=== PATIENT | female | born 1930 | race Caucasian/White ===

== ENCOUNTER → 2017-04-15 | Outpatient (CLI) | payer OTHER ==
[~2017-04-15] MED LIST: BCTROWC EXT; CHOL100027 PO; LEVO125T72 PO; MULT-190 PO
[2017-04-15 13:40] LABS: COMPLETE YES; HEMATOCRIT 40.3 % (37-47); LYMPH % 29.7 %; LYMPH ABS # 1.29 K/uL (1.2-3.4); MEAN CELL VOLUME 91.8 fL (80-100); MEAN CORPUSCULAR HGB CONC 33.7 g/dl (32-36); MEAN PLATELET VOLUME 9.6 fL (7.4-10.4); MONO % 5.1 %; NEUT % 65.2 %; PLATELET COUNT 160 K/uL (130-400); RED BLOOD COUNT 4.39 M/uL (4.2-5.4); WHITE BLOOD COUNT 4.35 K/uL (4.8-10.8)
[2017-04-15 14:30] LABS: BLOOD UREA NITROGEN 12 mg/dl (7-18); CREATININE 0.71 mg/dl (0.60-1.20); GLUCOSE 99 mg/dl (70-99)
[2017-04-15 14:31] LABS: BUN/CREATININE RATIO 17.5 (10-20); CARBON DIOXIDE 29 mmol/L (21-32); CHLORIDE 105 mmol/L (98-107); CHOLESTEROL 198 mg/dl (0-200); POTASSIUM 3.8 mmol/L (3.5-5.1); SODIUM 141 mmol/L (136-145); TRIGLYCERIDES 45 mg/dl (0-150); VERY LOW DENSITY LIPOPROT CALC 9 mg/dl
[2017-04-15 14:41] LABS: CHOLESTEROL/HDL RATIO 2.1; HDL CHOLESTEROL 93 mg/dl; LDL CHOLESTEROL CALCULATED 96 mg/dl; PHOSPHORUS 2.8 mg/dl (2.5-4.9)
[2017-04-15 14:42] LABS: CALCIUM 9.3 mg/dl (8.5-10.1)
== END | disposition home or self-care (01) ==
LOC: C.LABMFLN 10:22
PROVIDERS: ATTEND Family Medicine
DX: E03.9 Hypothyroidism, unspecified (principal); E78.5 Hyperlipidemia, unspecified; M11.80 Other specified crystal arthropathies, unspecified site

== ENCOUNTER → 2017-09-22 | Outpatient (CLI) | payer OTHER ==
--- NOTE | 2017-09-22 15:11 | MAMMOGRAPHY REPORT ---
BILATERAL DIGITAL SCREENING MAMMOGRAM WITH CAD: 09/22/2017 CLINICAL HISTORY: Routine screening. Patient has no complaints. TECHNIQUE: Bilateral CC and MLO views were obtained. Current study was also evaluated with a Compute r Aided Detection (CAD) system. COMPARISON: 09/22/2012, 10/12/2013, 02/20/2015, 03/18/2016 mammograms from [facility]. BREAST COMPOSITION: The tissue of both breasts is heterogeneously dense, which may obscure small mas ses. FINDINGS: There are mild vascular calcifications in the breasts. No suspicious mass, architectural d istortion or cluster of microcalcifications is seen. There has been no significant interval change c omparing to the prior outside mammograms. IMPRESSION: ACR BI-RADS CATEGORY 1: NEGATIVE There is no mammographic evidence of malignancy. A 1 year screening mammogram is recommended. The pa tient will receive written notification of the results. Approximately 10% of breast cancers are not detected with mammography. A negative mammographic report should not delay biopsy if a clinically suggestive mass is present. Karla Skaggs M.D. ay/:09/22/2017 15:01:44 Electron Beam Welding Machine Operator: Chandrika GASTELUM(R)(M)(BD), [facility] letter sent: Normal 1/2 BI-RADS Code: ACR BI-RADS Category 1: Negative
== END | disposition home or self-care (01) ==
LOC: C.MAMM 11:19
PROVIDERS: ATTEND Family Medicine
DX: Z12.31 Encounter for screening mammogram for malignant neoplasm of breast (principal)

== ENCOUNTER 2017-11-13 08:58 | Emergency (ER) | payer OTHER ==
[2017-11-13 09:11] VITALS: TEMP 36.7
[2017-11-13] MEDS ORDERED: PRMVC PV (09:45)
[2017-11-13] MEDS ORDERED: LEVO112T2 PO (09:45)
--- NOTE | 2017-11-13 10:15 | EMERGENCY ROOM VISIT NOTE ---
ED Visit Note First contact with patient: 09:15 Staff note: I have reviewed the Patients chart and have discussed this case with my PA. I generally agree with the ED note and findings.
--- NOTE | 2017-11-13 10:15 | EMERGENCY ROOM VISIT NOTE ---
ED Visit Note First contact with patient: 09:15 CHIEF COMPLAINT: Left knee pain 2 days HISTORY OF PRESENT ILLNESS: Patient is a relatively healthy 87-year-old white female, past medical history includes hypothyroidism and macular degeneration who presents to the emergency department accompanied by her son for evaluation of left knee pain 2 days. She has a remote history of bilateral knee arthroscopies, and has arthritis in the left knee. She occasionally gets flares where the knee becomes painful and swollen. Patient was fine until Thursday evening, when the knee became progressively more painful and swollen. She presently rates her pain an 8/10. She has needed to use a walker for ambulation secondary to her pain. She previously had been seen by orthopedics, and subsequently rheumatology and has had cortisone injections in the knee in the past, she cannot relate when her last injection was. She denies any new injury, falls or direct trauma to the knee, nor any increased activity which could have precipitated her pain. She denies any numbness, tingling or weakness in the lower leg. She denies any calf or leg pain or swelling. She denies any symptoms in the right knee. She has not tried taking any medications , nor performing any interventions for her symptoms. REVIEW OF SYSTEMS: Review of systems as per HPI. All other systems reviewed were negative. At least 6 systems reviewed. PMH: Electronic medical records are reviewed and summarized as above/below. See Problem List. SOCIAL HISTORY: Patient lives alone. Nonsmoker. PHYSICAL EXAM: Vital Signs: Reviewed Nurse's notes. MENTAL STATUS: Patient is a pleasant, well-appearing 87-year-old white female who is awake and alert and in no acute distress. She is able to transfer from the wheelchair to the bed, ambulating with an antalgic gait. She ambulates to the bathroom using a walker without difficulty. MUSCULOSKELETAL: Examination of the left knee notes a moderate palpable knee effusion. There is no significant extra-articular soft tissue swelling. There is no erythema, increased warmth or induration. The knee is globally tender to palpation. There is no popliteal tenderness. She can extend fully, only flex his roughly 10 limited secondary to pain. There is no gross the calf is soft and nontender. The left lower extremity is neurovascularly intact. EMERGENCY DEPARTMENT COURSE: The patient was seen and evaluated as above. Old records are reviewed. She has a long-standing history of left knee pain/ arthritis, and upon further questioning, it actually sounds like she has a history of pseudogout. She reports that she had analysis of her fluid by the palliative medicine physician and she had "crystals, but not gout." She admits that she was hoping to receive a cortisone injection here in the emergency department, as she states that she could not get in with orthopedics for over 2 weeks and she cannot function like this at home until then. I discussed with her that we are unable to perform that type of procedure here in the emergency department. She has had x-rays in the past, and has no new trauma to indicate radiographs at this time. I was able to secure her and appointment with orthopedics for November 17. She declines new radiographs here, which is reasonable as they will likely be repeated at orthopedics when she goes for her appointment. She was agreeable to trial of OTC Tylenol or Aleve. I was reluctant to use narcotics in her given her advanced age and comorbidities. She has a walker. She can ice the knee for pain. I do not suspect septic joint or trauma. The patient was discharged home with her son in good condition. Medication reconciliation: I attest that I have personally reviewed the patient' s current medication list. Blood pressure screening : Patient was found to have normal blood pressure on screening and does not require follow-up. Problem List Medical Problems: (1) Hypothyroidism, Unspecified Status: Chronic (2) Macular Degeneration Nos Status: Chronic Current/Historical Medications Scheduled Estrogens, Conjugated (Premarin), 1 APPLN PV DIRECTED Levothyroxine Sodium (Synthroid), 112 MCG PO DAILY Ocuvite Preservision (Ocuvite Preservision), 2 TAB PO DAILY Allergies Coded Allergies: Penicillins (Verified Allergy, Unknown, unknown, 08/02/15) pt Vital Signs Date Time Temp Pulse Resp B/P (MAP) Pulse Ox O2 Delivery O2 Flow Rate FiO2 11/13/17 10:25 80 18 139/77 98 11/13/17 09:11 36.7 88 20 143/82 96 Room Air Departure Information Impression Primary Impression: Left knee pain Additional Impression: Effusion, left knee Referrals Sherri Babcock M.D. (PCP) Patient Instructions My [facility] Additional Instructions Ibuprofen(Motrin, Advil): may be used for fever or pain. Use 600mg every six hours as needed. Take with food. Avoid using more than 2400mg in a 24 hour period. Do not use 2400mg per day for more than three consecutive days without physician direction. Prolonged inappropriate use can lead to stomach upset or ulcers. This is available over the counter and typically comes in 200mg tablets. (AND/OR) Acetaminophen(Tylenol): may be used for fever or pain. Use 1000mg every eight hours as needed. Avoid using more than 3000mg in a 24 hour period. This is available over the counter. Ice compresses for 20 minutes at a time four times daily for 2-3 days. Continue your walker as needed. Rest and elevate your injury as discussed. Continue current medications. Return to the ER immediately for any numbness, tingling, severe pain, extreme swelling in the extremity or as needed. Follow up with [facility] on 11/17/2017 at 10:45 as scheduled. Problem Qualifiers
[2017-11-13 10:25] VITALS: BP 139/77; PULSE 80; O2SAT 98
== END 2017-11-13 10:26 | disposition home or self-care (01) ==
LOC: C.EDB 09:01 → C.EDA 10:26
DX: M25.562 Pain in left knee (principal); M25.462 Effusion, left knee; E03.9 Hypothyroidism, unspecified; H35.30 Unspecified macular degeneration; M17.12 Unilateral primary osteoarthritis, left knee

== ENCOUNTER → 2017-12-21 | Outpatient (CLI) | payer OTHER ==
[~2017-12-21] MED LIST changes: -BCTROWC EXT; -CHOL100027 PO; +LEVO112T2 PO; -LEVO125T72 PO; +PRMVC PV
== END | disposition home or self-care (01) ==
LOC: C.LABMFLN 08:47
PROVIDERS: ATTEND Family Medicine
DX: R19.7 Diarrhea, unspecified (principal); K64.4 Residual hemorrhoidal skin tags

== ENCOUNTER → 2018-05-26 | Outpatient (CLI) | payer OTHER ==
--- NOTE | 2018-05-26 09:54 | DIAGNOSTIC IMAGING REPORT ---
THORACIC SPINE 3 VIEWS ROUTINE CLINICAL HISTORY: 87 years-old Female presenting with BACK PAIN. TECHNIQUE: 3 views of the thoracic spine were obtained. COMPARISON: None. FINDINGS: Slightly exaggerated thoracic kyphosis. Vertebral bodies maintain normal height and alignment. Intervertebral disc heights preserved. Multilevel degenerative changes with disc osteophyte complexes noted to varying degrees at nearly every level. Limited visualization of the upper thoracic spine due to overlapping osseous structures. Allowing for this, no compression deformity or subluxation. No gross evidence of osseous neural foraminal narrowing. Osteopenia may be present. Atherosclerosis of aortic arch. Visualized portion of the lungs and pleural spaces clear. IMPRESSION: 1. No radiographic evidence of acute osseous injury. 2. Multilevel degenerative changes. Electronically signed by: Ventura Nguyen M.D. 05/26/2018 9:53 AM Dictated Date/Time: 05/26/2018 9:52 AM
== END | disposition home or self-care (01) ==
LOC: C.RAD 09:17
PROVIDERS: ATTEND Physician Assistant
DX: M47.9 Spondylosis, unspecified (principal)

== ENCOUNTER 2019-04-09 18:11 | Inpatient (IN) ==
[2019-04-09 18:54] LABS: Hematocrit (blood only) 36.2 % (37-47); Hemoglobin 12.8 g/dL (12.0-16.0); Immature Granulocytes # (auto) 0.02 K/uL (0.00-0.02); Immature Granulocytes % (auto) 0.2 %; Lymphocytes % (auto) 20.2 %; Mean Corpuscular Hgb Conc 35.4 g/dL (32-36); Mean Corpuscular Volume 90.5 fL (80-100); Mean Platelet Volume 8.7 fL (7.4-10.4); Monocytes # (auto) 0.77 K/uL (0.11-0.59); Monocytes % (auto) 8.6 %; Neutrophils # (auto) 6.33 K/uL (1.4-6.5); Platelet Count 181 K/uL (130-400); RDW Coefficient of Variation 12.8 % (11.5-14.5); RDW Standard Deviation 42.3 fL (36.4-46.3); White Blood Count 8.92 K/uL (4.8-10.8)
[2019-04-09 19:08] LABS: BUN Creatinine Ratio 18.2 (10-20); Blood Urea Nitrogen 13 mg/dl (7-18); Calcium 8.2 mg/dl (8.5-10.1); Carbon Dioxide 25 mmol/L (21-32); Chloride 104 mmol/L (98-107); Est GFR (African American) 86.1; Est GFR (Non-African American) 74.3; Glucose 108 mg/dl (70-99); Potassium 4.4 mmol/L (3.5-5.1); Sodium 133 mmol/L (136-145)
[2019-04-09] MEDS ORDERED: VANCOMYCIN HCL 1,000 MG in SODIUM CHLORIDE 0.9% 500 ML IV ONE (20:33)
[2019-04-09] MEDS ORDERED: VANCOMYCIN CONSULT ACTIVE PRN (20:33)
--- NOTE | 2019-04-09 20:33 | Emergency Department Note ---
Entered by Taylor Meredith acting as a scribe for Khris Jacobs ED Visit Note The patient was seen and examined by myself in conjunction with the advanced care provider, Odalis Becerra PA-C. I agree with the history, physical and findings as documented. Please see the note for disposition and details. . The scribe's documentation has been prepared under my direction and personally reviewed by me in its entirety. I confirm that the note above accurately reflects all work, treatment, procedures, and medical decision making performed by me.
--- NOTE | 2019-04-09 21:00 | Emergency Department Note ---
History of Present Illness General Chief complaint: Foot Injury/Pain Stated complaint: foot pain, swelling and redness Time Seen by Provider: 04/09/19 18:23 History of Present Illness Maximum Pain Intensity: 10 This patient is an 88-year-old female that presents to the emergency department with her family for evaluation of worsening redness in her right foot. The patient was seen in the emergency department yesterday. She had an extensive work-up including blood work and imaging. It was felt that she likely had a cellulitis. The patient was put on Keflex. She was discharged home. Despite taking the Keflex today, the erythema in the foot and pain has increased. She denies any fever, chest pain or shortness of breath. She has been trying ice and Tylenol at home with minimal relief. She says her pain is sharp, stabbing and rates it as a 10/10. Home Medications Home Medications Medication Instructions Recorded Confirmed Type cholecalciferol (vitamin D3) 1,000 unit PO DAILY 03/18/19 04/09/19 History [Vitamin D3] clobetasol 1 applic TOPICAL 2XWK 03/18/19 04/09/19 History conjugated estrogens [Premarin] 1 applic VAGINAL 2XWK 03/18/19 04/09/19 History levothyroxine [Synthroid] 112 mcg PO DAILY 03/18/19 04/09/19 History vit C,H-Qt-whlar-lutein-zeaxan 2 tab PO DAILY 03/18/19 04/09/19 History [PreserVision AREDS-2] cephalexin [Keflex] 500 mg PO BID #14 cap 04/08/19 04/09/19 Rx zoledronic qmwt-dutzfewb-zxftm 0 mg IV DIRECTED 04/08/19 04/09/19 History [Reclast] acetaminophen [Tylenol] 650 mg PO Q6H PRN 04/09/19 04/09/19 History Allergies Allergy/AdvReac Type Severity Reaction Status Date / Time Penicillins Allergy Unknown CAN'T Verified 04/09/19 19:42 REMEMBER Past Med/Surg History Medical History Osteoporosis Contusion of right hip region (Acute) Fall (Acute) Family History Other Family history non-contributory Social History Preferred Language: Arabic Feels Safe at Home: Yes Smoking Status: Never smoker Review of Systems A total of 10 systems reviewed and were otherwise negative Physical Exam Vital Signs Vital Signs - 24 hr 04/09/19 18:14 04/09/19 20:49 Temperature 36.8 C Temperature Source Oral Sepsis Recent Fever Within 48 Hours No Sepsis New/Unexplained Change in Mental Status No Sepsis Action Taken by Nursing No Action Required Pulse Rate 80 Pulse Rate [Finger] 79 Pulse Rhythm Regular Pulse Strength Normal Respiratory Rate 20 18 Respiratory Effort / Characteristics Non-Labored Spontaneous Respiratory Depth Normal Respiratory Pattern Regular Blood Pressure 128/76 Blood Pressure [Right Arm] 167/82 H Blood Pressure Mean 93 Blood Pressure Mean [Right Arm] 110 Blood Pressure Position Sitting Pulse Oximetry 98 97 Oxygen Delivery Method Room Air Room Air Constitutional WD/WN, vitals as above Eyes EOM intact bilaterally ENMT external ear and nose normal, oropharynx normal Neck trachea midline Respiratory normal respiratory effort, lungs clear to auscultation Cardiovascular RRR, no murmur, no edema Musculoskeletal Significant erythema, warmth and edema noted particularly to the right foot and ankle. No significant erythematous streaking noted superiorly. Skin appears to be intact. DP pulse +2 bilaterally. Skin no rashes, warm and dry Neurologic Alert and oriented x3. No focal motor deficits. Psychiatric Acting appropriately Course Patient was seen and examined Vital signs including blood pressure were reviewed medications list was verified with patient Labs were obtained, and a saline lock was established The patient was ordered vancomycin IV The patient was also seen and examined with my supervising physician who is in agreement with my plan The patient was reevaluated. We discussed her results and plan. She and her family voiced understanding. The case was discussed with the hospitalist group. They kindly agreed to evaluate the patient for possible inpatient management. Consultations Consultation #1: [facility] hospitalist-Dr. Yang Administered Medications Vancomycin HCl 1,000 mg/ (Sodium Chloride) 520 mls @ 200 mls/hr IV NOW ONE; Protocol Stop: 04/09/19 23:08 Last Admin: 04/09/19 20:51 Dose: 200 mls/hr Documented by: [id number] Medical Decision Making Medical Records Attestation: I reviewed the patient's medical records. Home Medications Current Medication List: was personally reviewed by me Laboratory Data Result diagrams: 04/09/19 18:44 04/09/19 18:44 Lab Results 04/09/19 04/09/19 04/09/19 Range/Units 18:44 18:44 18:44 WBC 8.92 (4.8-10.8) K/uL RBC 4.00 L (4.2-5.4) M/uL Hgb 12.8 (12.0-16.0) g/dL Hct 36.2 L (37-47) % MCV 90.5 (80-100) fL MCH 32.0 (25-34) pg MCHC 35.4 (32-36) g/dL RDW Std Deviation 42.3 (36.4-46.3) fL RDW Coeff of Nicolasa 12.8 (11.5-14.5) % Plt Count 181 (130-400) K/uL MPV 8.7 (7.4-10.4) fL Immature Gran % (Auto) 0.2 % Neut % (Auto) 71.0 % Lymph % (Auto) 20.2 % [place] % (Auto) 8.6 % Eos % (Auto) 0.0 % Baso % (Auto) 0.0 % Immature Gran # (Auto) 0.02 (0.00-0.02) K/uL Neut # (Auto) 6.33 (1.4-6.5) K/uL Lymph # (Auto) 1.80 (1.2-3.4) K/uL [place] # (Auto) 0.77 H (0.11-0.59) K/uL Eos # (Auto) 0.00 (0-0.5) K/uL Baso # (Auto) 0.00 (0-0.2) K/uL Sodium 133 L (136-145) mmol/L Potassium 4.4 (3.5-5.1) mmol/L Chloride 104 (98-107) mmol/L Carbon Dioxide 25 (21-32) mmol/L Anion Gap 4.0 (3-11) BUN 13 (7-18) mg/dl Creatinine 0.72 (0.6-1.2) mg/dl Est Cr Clr Drug Dosing Not Reportable Est GFR ( Amer) 86.1 Est GFR (Non-Af Amer) 74.3 BUN/Creatinine Ratio 18.2 (10-20) Glucose 108 H (70-99) mg/dl Lactate 0.7 (0.4-2.0) mmol/L Calcium 8.2 L (8.5-10.1) mg/dl Blood Pressure Blood Pressure Findings: Elevated blood pressure Blood Pressure Disposition: elevated BP felt to be situational MDM Narrative Differential diagnosis: Cellulitis, abscess, osteomyelitis, DVT, sepsis, among others This patient is an 88-year-old female that returns to the emergency department with complaints of worsening redness, swelling and pain of the foot. I had the pleasure of seeing this patient yesterday. There has been an increase in the swelling and redness. Although the patient is afebrile with no leukocytosis, she is not improving on outpatient therapy. She also lives alone. I am concerned that even if we switch to another oral antibiotic that she will not do well and is a high fall risk. The patient's family was in agreement with the plan. She will be evaluated by the hospitalist service for possible inpatient management. Impression & Plan Cellulitis Discharge Plan Visit Data Chief Complaint: Foot Injury/Pain Stated Complaint: foot pain, swelling and redness ED Provider: Khris Jacobs ED Midlevel Provider: Odalis Higgins Discharge Problem: Cellulitis Patient Disposition: Admitted As Inpatient Condition: Fair Forms Stand Alone Forms: [facility] Prescriptions Prescriptions: No Action clobetasol 0.05 % cream 1 applic topical 2XWK RF: 0 Premarin 0.625 mg/gram cream 1 applic vaginal 2XWK RF: 0 levothyroxine [Synthroid] 112 mcg Tablet 112 mcg PO DAILY RF: 0 cholecalciferol (vitamin D3) [Vitamin D3] 1,000 unit Capsule 1,000 unit PO DAILY RF: 0 PreserVision AREDS-2 [id number] fa-uywo-sj-mg Capsule 2 tab PO DAILY RF: 0 zoledronic ijbe-pcshuqqv-ocspt [Reclast] 5 mg/100 mL Piggyback IV DIRECTED RF: 0 cephalexin [Keflex] 500 mg capsule 500 mg PO BID Qty: 14 RF: 0 acetaminophen [Tylenol] 325 mg Tablet 650 mg PO Q6H PRN (Reason: Fever Or Pain) RF: 0 Referrals Referrals: Sherri Babcock MD [Primary Care Provider] -
--- NOTE | 2019-04-09 22:38 | History & Physical Report ---
Date of Service April 09, 2019 Assessment & Plan (1) Cellulitis: Patient is an 88yo F PMH osteoporosis, hypothyroid, OA, macular degeneration, frequent falls, who presents with family for R foot pain, redness, swelling, and warmth. Cellulitis -Pt returned after <24 hrs of keflex. Started on Vanc in ER. Will change to cefazolin IV and PO bactrim -Pt has h/o c.dif colitis. Will proactively start probiotic -monitor Hypothyroid -Continue with levothyroxine Macular degeneration -preservision Osteoporosis -Pt uses reclast weekly Frequent falls -Addressed with PCP on february 07, 2019. Pt uses walker regularly -Lives alone, supportive family -CM consulted DVTP: lovenox Code: Full FEN/GI: Regular diet. No IVF started Dispo: admit to med/surg (2) Osteoporosis: (3) Macular degeneration: (4) Hypothyroid: History of Present Illness Chief Complaint: R foot pain, swelling, redness Primary Care Provider: Sherri Babcock MD Patient is an 88yo F PMH osteoporosis, hypothyroid, OA, macular degeneration, frequent falls, who presents with family for R foot pain, redness, swelling, and warmth. Patient had visited ER 24 hours [employer] for same complaint and was started on keflex. She had been taking her meds today but notes the amount of swelling, redness, warmth and pain had gotten significantly worse. Pt lives alone but has supportive family who are with her this evening. She rates her pain at 10/10 when her foot is moved or touched. She does not recall any injury or trauma to the foot. Denies fevers, chills. Allergies Allergy/AdvReac Type Severity Reaction Status Date / Time Penicillins Allergy Unknown CAN'T Verified 04/09/19 19:42 REMEMBER Home Medications Home Medications Medication Instructions Recorded Confirmed Type cholecalciferol (vitamin D3) 1,000 unit PO DAILY 03/18/19 04/09/19 History [Vitamin D3] clobetasol 1 applic TOPICAL 2XWK 03/18/19 04/09/19 History conjugated estrogens [Premarin] 1 applic VAGINAL 2XWK 03/18/19 04/09/19 History levothyroxine [Synthroid] 112 mcg PO DAILY 03/18/19 04/09/19 History vit C,D-Br-vfdia-lutein-zeaxan 2 tab PO DAILY 03/18/19 04/09/19 History [PreserVision AREDS-2] cephalexin [Keflex] 500 mg PO BID #14 cap 04/08/19 04/09/19 Rx zoledronic twwu-paynmape-iqmwb 0 mg IV DIRECTED 04/08/19 04/09/19 History [Reclast] acetaminophen [Tylenol] 650 mg PO Q6H PRN 04/09/19 04/09/19 History Past Med/Surg History Medical History Osteoporosis Contusion of right hip region (Acute) Fall (Acute) Family History Other Family history non-contributory Social History Preferred Language: Afghan Communication Ability: Effective Real Estate Economist Required: No Beliefs That Will Affect Care: Pentecostalism Pentecostalism Beliefs: Orthodox Current Living Situation: Alone Other Information That Helps Us Care for You: No Feels Safe at Home: Yes Safety Concerns: Feels Safe At This Time Smoking Status: Never smoker Do You Dip or Chew Tobacco: No Second Hand Exposure: Yes (at job) Hx Alcohol Use: No Hx Substance Use: No Review of Systems Review of Systems: All systems reviewed & are unremarkable except as noted in HPI & below Constitutional: no fever, no chills and no body aches Eyes: + worsening vision (macular degeneration) Respiratory: no cough and no dyspnea Cardiovascular: no chest pain and no radiating jaw, neck or arm pain Gastrointestinal: no abdominal pain, no bloating, no nausea and no vomiting Musculoskeletal: + joint pain (knees, chronic) Integumentary: + erythema, + skin swelling and + change in skin color all in R foot Neurologic: + gait abnormality and + falls uses walker "religiously" Physical Exam Constitutional: WD/WN, vitals as above Eyes: EOM intact bilaterally ENMT: external ear and nose normal, oropharynx normal Neck: trachea midline Respiratory: normal respiratory effort, lungs clear to auscultation Cardiovascular: Rate/Rhythm: regular rate and regular rhythm Vessels: normal peripheral pulses Extremities: normal capillary refill and + pedal edema (R foot ) Gastrointestinal (Abdomen): normal bowel sounds, soft, nontender, no hepatosplenomegaly Musculoskeletal: Extremities: extremities normal to inspection ("knock knees") Shoulder: + joint line tenderness (R ankle and forefoot) Ankle: + ankle abnormal to inspection, + skin erythema (mild) and + joint line tenderness (R an kle and forefoot) Skin: + induration and + erythema; no wound Trauma: no evidence of skin trauma Neurologic: PERRL, EOMI, accommodation nl, no face palsy, no dysarthria Psychiatric: A+Ox3, euthymic affect Results & Data Vital Signs (Past 12 Hours) Vital Signs Temp Pulse Pulse Resp BP BP Pulse Ox 04/09/19 20:49 79 18 167/82 H 97 04/09/19 18:14 36.8 C 80 20 128/76 98 Laboratory Results 04/09/19 04/09/19 04/09/19 Range/Units 18:44 18:44 18:44 WBC 8.92 (4.8-10.8) K/uL RBC 4.00 L (4.2-5.4) M/uL Hgb 12.8 (12.0-16.0) g/dL Hct 36.2 L (37-47) % MCV 90.5 (80-100) fL MCH 32.0 (25-34) pg MCHC 35.4 (32-36) g/dL RDW Std Deviation 42.3 (36.4-46.3) fL RDW Coeff of Nicolasa 12.8 (11.5-14.5) % Plt Count 181 (130-400) K/uL MPV 8.7 (7.4-10.4) fL Immature Gran % (Auto) 0.2 % Neut % (Auto) 71.0 % Lymph % (Auto) 20.2 % [place] % (Auto) 8.6 % Eos % (Auto) 0.0 % Baso % (Auto) 0.0 % Immature Gran # (Auto) 0.02 (0.00-0.02) K/uL Neut # (Auto) 6.33 (1.4-6.5) K/uL Lymph # (Auto) 1.80 (1.2-3.4) K/uL [place] # (Auto) 0.77 H (0.11-0.59) K/uL Eos # (Auto) 0.00 (0-0.5) K/uL Baso # (Auto) 0.00 (0-0.2) K/uL Sodium 133 L (136-145) mmol/L Potassium 4.4 (3.5-5.1) mmol/L Chloride 104 (98-107) mmol/L Carbon Dioxide 25 (21-32) mmol/L Anion Gap 4.0 (3-11) BUN 13 (7-18) mg/dl Creatinine 0.72 (0.6-1.2) mg/dl Est Cr Clr Drug Dosing Not Reportable Est GFR ( Amer) 86.1 Est GFR (Non-Af Amer) 74.3 BUN/Creatinine Ratio 18.2 (10-20) Glucose 108 H (70-99) mg/dl Lactate 0.7 (0.4-2.0) mmol/L Calcium 8.2 L (8.5-10.1) mg/dl Medications Administered Current Inpatient Medications Vancomycin HCl 1,000 mg/ (Sodium Chloride) 520 mls @ 200 mls/hr IV NOW ONE; Protocol Stop: 04/09/19 23:08 Last Admin: 04/09/19 20:51 Dose: 200 mls/hr Documented by: Miscellaneous Information (Consult) 1 ea N/A UD PRN PRN Reason: Consult Stop: 05/09/19 20:32 Code Status & VTE Plan Code Status full VTE Prophylaxis Plan VTE Prophylaxis will be ordered: Yes Supervising Physician Co-Signing Physician Notes Attending addendum: I have physically seen this patient, have supervised the medical residents activities, and agree with the H&P unless as otherwise noted. Assessment and Plan: Cellulitis of foot/failure of outpatient treatment- Patient had been seen in the ED the previous day and given oral Keflex, however, continue to worsen. Admit for IV antibiotics, IV ceftezole and and p.o. Bactrim. Prophylax against C. difficile colitis with probiotics. Remainder of orders and notations as noted. Resident Activity Tracking Resident Involvement: Resident Care Provided Care Provided: Adult Hospital Medicine
[2019-04-09] MEDS ORDERED: ACETAMINOPHEN 325 MG TAB PO PRN (23:30)
[2019-04-09] MEDS ORDERED: POLYETHYLENE (MIRALAX) 17 GM PACK PO PRN (23:30)
[2019-04-09] MEDS ORDERED: MAGNESIUM HYDROXIDE SUSP 30 ML UDC PO PRN (23:30)
[2019-04-09] MEDS ORDERED: ALUMINUM/MAGNESIUM SUSP 30 ML UDC PO PRN (23:30)
[2019-04-09] MEDS ORDERED: ONDANSETRON INJ 2 MG/ML 2 ML VIAL IV PRN (23:30)
[2019-04-10] MEDS: LEVOTHYROXINE SODIUM 112 MCG TABLET PO SCH (06:31)
[2019-04-10 07:27] LABS: Hematocrit (blood only) 33.4 % (37-47); Hemoglobin 11.7 g/dL (12.0-16.0); Lymphocytes # (auto) 1.32 K/uL (1.2-3.4); Lymphocytes % (auto) 25.6 %; Mean Platelet Volume 8.6 fL (7.4-10.4); Monocytes # (auto) 0.41 K/uL (0.11-0.59); Neutrophils # (auto) 3.42 K/uL (1.4-6.5); Neutrophils % (auto) 66.4 %; Platelet Count 156 K/uL (130-400); RDW Coefficient of Variation 12.9 % (11.5-14.5); RDW Standard Deviation 43.2 fL (36.4-46.3); Red Blood Count 3.67 M/uL (4.2-5.4); White Blood Count 5.15 K/uL (4.8-10.8)
[2019-04-10 08:03] LABS: Prothrombin Time 10.5 Seconds (9.0-12.0)
[2019-04-10] MEDS: CEROVITE ADV FORMULA TAB PO SCH (08:03)
[2019-04-10] MEDS: SACCHAROMYCES BOULARDII 250 MG CAP PO SCH (08:03)
[2019-04-10] MEDS: SULFAMETHOXAZOLE/TRIMETHOPRIM DS 800/160MG TAB PO SCH ×2 (08:04→22:12)
[2019-04-10] MEDS: CHOLECALCIFEROL 1,000 UNITS TAB PO SCH (08:04)
[2019-04-10 08:06] LABS: BUN Creatinine Ratio 18.2 (10-20); Calcium 7.9 mg/dl (8.5-10.1); Creatinine Clr Calc Pharmacy 51.6 ml/min; Est GFR (African American) 97.6; Est GFR (Non-African American) 84.2; Potassium 3.7 mmol/L (3.5-5.1)
[2019-04-10] MEDS ORDERED: CEFAZOLIN 1000MG 1,000 MG/7.5 ML SYR IV SCH (09:00)
[2019-04-10] MEDS: ENOXAPARIN INJ 40 MG/0.4 ML SYR SQ SCH (09:11)
--- NOTE | 2019-04-10 14:44 | Family Medicine Progress Note ---
Date of Service April 10, 2019 Assessment & Plan (1) Cellulitis: Patient is an 88yo F PMH osteoporosis, hypothyroid, OA, macular degeneration, frequent falls, who presents with family for R foot pain, redness, swelling, and warmth. Cellulitisimproving: Hemodynamically stable no concern for sepsis at this time -Pt returned after <24 hrs of keflex. Started on Vanc in ER. Then cefazolin IV and PO bactrim Antibiotic coverage narrowed to Bactrim p.o. twice daily -Pt has h/o c.dif colitis. Started on probiotic -monitor Frequent falls and concern for safety at home especially when family not in town -Addressed with PCP on february 07, 2019. Pt uses walker regularly -Lives alone, supportive family -one son lives nearby, however patient concerned as son and his family would be out of town soon and unavailable in the event she needs assistance or deteriorating in health PT OT ordered -CM consulted Irritated skin lesions: Likely seborrhea keratosis versus actinic keratosis Patient picks on lesions causing open skin regions in neck and back Ordered skin emollientAquaphor Consider low to moderate dose steroid cream if continues to have irritation Hypothyroid -Continue levothyroxine Macular degeneration -Continue Preservision Osteoporosis -Pt uses reclast weekly DVTP: lovenox Code: Full FEN/GI: Regular diet. No IVF started Dispo: admit to med/surg (2) Osteoporosis: (3) Macular degeneration: (4) Hypothyroid: Supervising Physician Co-Signing Physician Notes I personally examined the patient and verified all ledezma points of history and exam, discussed case, and agree with decision making with Dr Simpson. Foot feels about the same. She is very anxious about skin lesions that she occasionally finds to get irritated and then she scratches until something red comes off. She also notes that she is kind of weak and unsteady on her feet. She notes that she lives alone but family looks after. She notes that they were going away for a few weeks, and actually were already discussing with [facility] or [facility] about respite care. Vitals noted no distress. She is somewhat anxious. But she is very pleasant. HEENT normocephalic atraumatic mucous membranes moist. Breathing unlabored no accessory muscle use good effort. Skin shows some excoriated lesions that are undiscernible, and elsewhere she has numerous seborrheic keratoses. Her right foot shows a dull degree of erythema on the dorsum of foot no crepitus no open lesions no areas of fluctuance Foot cellulitiswas on Keflex at home then came back less than 24 hours later admitted. Will distill antibiotic regimen to Bactrim alone. Continue follow-up and supportive care. Skin lesionsthe excoriated lesions are undiscernible given the excoriations, given the location of them it seems likely that most were irritated seborrheic keratoses that she then scratched off. Recommended moisturizer to calm the irritation, and if moisturizer did not improve calming the irritation then a steroid cream could be helpful as well. Weakness/ambulatory dysfunctionit sounds like she is barely able to hold on at home at her baseline, and it is quite possible that the foot cellulitis has t ipped her from deconditioning and weakness to where she may need a degree of rehab. Will ask PT/OT eval and treat. If she is actually doing well enough to be able to go home, we would ask case management to assist the family in facilitating the respite care they were already working to set up. Subjective This morning patient reports improvement in right foot pain as patient able to put foot down and ambulate without significant discomfort using walker. Patient reports macular degeneration history and thus unable to report if erythema or edema improved. Patient came to the hospital yesterday with [id number] after [id number] noted worsening erythema and edema. Patient had been on Keflex for 1 day. Patient was started on Bactrim and cefazolin on admission. Patient reports itchy skin spots which she has been picking on neck and back. History of chronic neck pain due to arthritis. Otherwise denies any fever, chills, shortness of breath, chest pain, nausea, vomiting, abdominal pain, diarrhea, constipation, dysuria Physical Exam Physical Exam: General: In no acute distress, resting in bed, pleasant CV: RRR no m/r/g appreciated Pulm: CTAB, equal breath sounds bilaterally Abdomen: +BS, nondistended, nontender to palpation all quadrants LE: Right foot 2+ edema extending to ankle region with mild erythema on dorsal aspect of foot, no open skin note; right foot appears significantly bigger than left foot; No calf tenderness bilaterally Results & Data Vital Signs (Past 12 Hours) Vital Signs Temp Pulse Resp BP Pulse Ox 04/10/19 07:39 36.5 C 73 16 126/73 98 Laboratory Results Abnormal lab results 04/09/19 04/09/19 04/10/19 Range/Units 18:44 18:44 07:09 RBC 4.00 L 3.67 L (4.2-5.4) M/uL Hgb 11.7 L (12.0-16.0) g/dL Hct 36.2 L 33.4 L (37-47) % [place] # (Auto) 0.77 H (0.11-0.59) K/uL Sodium 133 L (136-145) mmol/L Chloride (98-107) mmol/L Creatinine (0.6-1.2) mg/dl Glucose 108 H (70-99) mg/dl Calcium 8.2 L (8.5-10.1) mg/dl 04/10/19 Range/Units 07:09 RBC (4.2-5.4) M/uL Hgb (12.0-16.0) g/dL Hct (37-47) % [place] # (Auto) (0.11-0.59) K/uL Sodium (136-145) mmol/L Chloride 108 H (98-107) mmol/L Creatinine 0.53 L (0.6-1.2) mg/dl Glucose (70-99) mg/dl Calcium 7.9 L (8.5-10.1) mg/dl Medications Administered Current Inpatient Medications Acetaminophen (Tylenol) 650 mg PO Q4H PRN PRN Reason: pain/fever Stop: 05/09/19 23:29 Al Hydrox/Mg Hydrox/Simethicone (Maalox) 30 ml PO Q6H PRN PRN Reason: Dyspepsia Stop: 05/09/19 23:29 Emollient Ointment (Aquaphor Disp By Gram) 1 gm EXT BID [facility] Stop: 05/10/19 20:59 Enoxaparin Sodium (Lovenox) 40 mg SQ Q24H [facility] Stop: 05/10/19 08:59 Last Admin: 04/10/19 09:11 Dose: 40 mg Documented by: Levothyroxine Sodium (Synthroid) 112 mcg PO DAILYBB [facility] Stop: 05/10/19 06:29 Last Admin: 04/10/19 06:31 Dose: 112 mcg Documented by: Magnesium Hydroxide (Milk Of Magnesia) 30 ml PO Q6H PRN PRN Reason: Constipation Stop: 05/09/19 23:29 Multivitamins/Minerals (Multivitamin W/ Minerals Tab) 2 tab PO DAILY [facility] Stop: 05/10/19 08:59 Last Admin: 04/10/19 08:03 Dose: 2 tab Documented by: Ondansetron HCl (Zofran) 4 mg IV Q6H PRN PRN Reason: Nausea Stop: 05/09/19 23:29 Polyethylene Glycol (Miralax Powder Packet) 17 gm PO DAILY PRN PRN Reason: Constipation Stop: 05/09/19 23:29 Saccharomyces Boulardii (Florastor) 250 mg PO DAILY [facility] Stop: 05/10/19 08:59 Last Admin: 04/10/19 08:03 Dose: 250 mg Documented by: Trimethoprim/Sulfamethoxazole (Septra Ds 800/160mg Tab) 1 tab PO Q12 [facility] Stop: 04/20/19 08:59 Last Admin: 04/10/19 08:04 Dose: 1 tab Documented by: Vitamin D (Vitamin D3) 1,000 units PO DAILY [facility] Stop: 05/10/19 08:59 Last Admin: 04/10/19 08:04 Dose: 1,000 units Documented by: Resident Activity Tracking Resident Involvement: Resident Care Provided Care Provided: Adult Hospital Medicine
[2019-04-10] MEDS: EMOLLIENT OINTMENT 1 GM EXT SCH (22:12)
[2019-04-11] MEDS: LEVOTHYROXINE SODIUM 112 MCG TABLET PO SCH (06:30)
[2019-04-11] MEDS: CHOLECALCIFEROL 1,000 UNITS TAB PO SCH (08:48)
[2019-04-11] MEDS: CEROVITE ADV FORMULA TAB PO SCH (08:48)
[2019-04-11] MEDS: SULFAMETHOXAZOLE/TRIMETHOPRIM DS 800/160MG TAB PO SCH (08:49)
[2019-04-11] MEDS: SACCHAROMYCES BOULARDII 250 MG CAP PO SCH (08:49)
[2019-04-11] MEDS: ENOXAPARIN INJ 40 MG/0.4 ML SYR SQ SCH (08:52)
[2019-04-11] MEDS: EMOLLIENT OINTMENT 1 GM EXT SCH (08:52)
--- NOTE | 2019-04-11 17:45 | Discharge Summary ---
Date of Service April 11, 2019 Admission HPI Per Admitting Provider Patient is an 88yo F PMH osteoporosis, hypothyroid, OA, macular degeneration, frequent falls, who presents with family for R foot pain, redness, swelling, and warmth. Patient had visited ER 24 hours [facility]ICAL AIDE for same complaint and was started on keflex. She had been taking her meds today but notes the amount of swelling, redness, warmth and pain had gotten significantly worse. Pt lives alone but has supportive family who are with her this evening. She rates her pain at 10/10 when her foot is moved or touched. She does not recall any injury or trauma to the foot. Denies fevers, chills. Principal Diagnosis Cellulitis Discharge Exam Constitutional WD/WN, vitals as above Respiratory normal respiratory effort, lungs clear to auscultation Cardiovascular RRR, no murmur, no edema Gastrointestinal (Abdomen) normal bowel sounds, soft, nontender, no hepatosplenomegaly Skin Right foot - Edema and mild erythema. Non tender. Distal pulse 2/4 Psychiatric A+Ox3, euthymic affect Discharge Data Allergies Allergy/AdvReac Type Severity Reaction Status Date / Time Penicillins Allergy Unknown CAN'T Verified 04/09/19 19:42 REMEMBER Consultations 04/09/19 20:33 ED Decision to Admit Stat 04/09/19 23:30 Consult Case Management - Discharge Planning Routine Hospital Course (1) Cellulitis: Patient is an 88yo F PMH osteoporosis, hypothyroid, OA, macular degeneration, frequent falls, who presents with family for R foot pain, redness, swelling, and warmth. Cellulitis -Was put on keflex as outpatient. Started on Vanc in ER. Then cefazolin IV and PO bactrim -Improved but still with some erythema. Underlying foot and ankle edema likely contributing. Dopplers negative for DVT. -Antibiotic coverage narrowed to Bactrim p.o. twice daily and discharge home on it. -Instructed to keep the legs propped up for edema. Frequent falls and concern for safety at home especially when family not in town -Pt uses walker regularly PT OT ordered - to return home. -CM consulted. Patient and family didn't feel the need for any home health needs. Irritated skin lesions: Likely seborrhea keratosis versus actinic keratosis -Avoid irritation. - Moisturize skin Hypothyroid -Continued levothyroxine Macular degeneration -Continued Preservision Osteoporosis -On Reclast. (2) Hypothyroid: (3) Macular degeneration: (4) Osteoporosis: Total Time Total Time Spent Total Time Spent (In Minutes): 35 Discharge Plan Discharge Items Patient Disposition: Home - Self-Care Reason For Visit: CELLULITIS R FOOT Discharge Diagnosis: Right Foot Cellulitis Condition: Fair Discharge Goals: Decrease discomfort and Improve disease control Activity: Resume your previous activity Non-emergency contact: Primary Care Provider Call non-emergency contact if: you have any medication questions and your symptoms worsen Follow-up/Referrals: Sherri Babcock MD [Primary Care Provider] - Diet: Regular Addtl Provider Instructions: Follow up with family physician in one week Please keep your right leg propped up so the swelling can stay down. Prescriptions: New sulfamethoxazole-trimethoprim 800-160 mg Tablet 1 tab PO Q12 Qty: 10 RF: 0 Continued clobetasol 0.05 % cream 1 applic topical [id number] RF: 0 Premarin 0.625 mg/gram cream 1 applic vaginal [id number] RF: 0 levothyroxine [Synthroid] 112 mcg Tablet 112 mcg PO DAILY RF: 0 cholecalciferol (vitamin D3) [Vitamin D3] 1,000 unit Capsule 1,000 unit PO DAILY RF: 0 PreserVision AREDS-2 325-184-51-1 [id number]-dr-mg Capsule 2 tab PO DAILY RF: 0 zoledronic [id number] [Reclast] 5 mg/100 mL Piggyback IV DIRECTED RF: 0 acetaminophen [Tylenol] 325 mg Tablet 650 mg PO Q6H PRN (Reason: Fever Or Pain) RF: 0 Discontinued cephalexin [Keflex] 500 mg capsule 500 mg PO BID Qty: 14 RF: 0 Stand-Alone Forms: [facility] Discharge Orders: Discharge Order (Routine); Ordered 04/11/19 Ordered By: Ludivina Rhoades Admission Data Admit Date/Time: 04/09/19 22:31 Attending Provider: Ludivina Rhoades Admit Provider: Lora Casey Primary Care Provider: Sherri Babcock Other Providers: Wenceslao Yang ; Dav Stauffer Service: Medical Other Interventions: Discharge Summary Assessment (RN) Last Done: 04/11/19 14:14 DC Date/Time DO NOT enter until pt leaves facility: 04/11/19 15:34
== END 2019-04-11 15:34 | disposition home or self-care (01) | DRG 603 ==
LOC: ED 18:11 → SUATTDRO 22:31 → 2W 22:31